=== PATIENT | female | born 1955 | race Caucasian/White ===

== ENCOUNTER 2018-12-24 12:47 | Observation (INO) | payer SELFPAY ==
[~2018-12-24] VITALS: Ht 154.9 cm; Wt 91.3 kg
[~2018-12-24 12:47] MED LIST: COZAAR100 MG PO; GLIPIZIDE5 MG PO; INSULIN PEN NE1 EAC2 SUBD; Insulin Detemir SQ; METFORMIN HCL500 MG PO; NORVASC10 MG PO; NOVOLOG100 UNITS1 SUBD; SIMVASTATIN40 MG PO
--- OUTSIDE RECORDS SUMMARY | 2018-12-24 12:50 | XMS REPORT ---
Author Author [facility] Address Unknown Phone Unavailable Care Team Providers Care Appellate Conferee Name Role Phone Beth MORA Unavailable Unavailable Mathew GARCIA Unavailable Unavailable Problems This patient has no known problems. Allergies, Adverse Reactions, Alerts This patient has no known allergies or adverse reactions. Medications This patient has no known medications. Encounters Start Date/Time End Date/Time Encounter Type Admission Type Attending Clinicians Care Facility Care Department Encounter ID 2017-10-03 00:00:00 2017-10-03 00:00:00 Outpatient [facility] [id number] 2017-08-24 09:20:57 2017-08-24 09:20:57 Outpatient [facility] [id number] 2017-08-24 08:18:40 2017-08-24 08:18:40 Outpatient [facility] [id number] 2017-07-31 00:00:00 2017-07-31 00:00:00 Outpatient [facility] [id number] 2017-07-17 13:15:38 2017-07-17 13:15:38 Outpatient [facility] [id number] 2017-06-27 00:00:00 2017-06-27 00:00:00 Outpatient [facility] [id number] 2017-06-08 08:37:26 2017-06-08 08:37:26 Outpatient [facility] [id number] 2017-05-29 00:00:00 2017-05-29 00:00:00 Outpatient [facility] [id number] 2017-05-29 00:00:00 2017-05-29 00:00:00 Outpatient [facility] [id number] 2017-05-28 13:55:57 2017-05-28 13:55:57 Outpatient [facility] [id number] Results Test Description Test Time Test Comments Text Results Atomic Results Result Comments CHEST XRAY LINE PLACEMENT [address] [address] Patient Name: MARCOS HAWKINS MR #: [id number] : 1955 Age/Sex: 61/F Req #: [id number] Adm Physician: NUSRAT MORA MD Ordered by: BANDAR GRIFFIN MD Report #: [id number] Location: [facility] Room/Bed: [facility] Procedure: [id number] DX/CHEST XRAY LINE PLACEMENT Exam Date: Exam Time: REPORT STATUS: Signed EXAMINATION: CHEST XRAY LINE PLACEMENT INDICATION: PICC line placement. COMPARISON: None FINDINGS: TUBES and LINES: Right upper extremity PICC line is visualized with tip overlying at the mid SVC. LUNGS: Lungs are well inflated. Lungs are clear. There is no evidence of pneumonia or pulmonary edema. PLEURA: No pleural effusion or pneumothorax. HEART AND MEDIASTINUM: The cardiomediastinal silhouette is unremarkable. BONES AND SOFT TISSUES: No acute osseous lesion. Soft tissues are unremarkable. UPPER ABDOMEN: No free air under the diaphragm. IMPRESSION: No acute thoracic abnormality. Signed by: Dr. Dominic Vallejo M.D. on 03/29/2017 11:27 PM Dictated By: DOMINIC ALEXANDER MD 26 Transcribed By: JM on 03/29/172326 COPY TO: BANDAR GRIFFIN MD MRI FOOT RIGHT [place] [address] Patient Name: MARCOS HAWKINS MR #: [id number] : 1955 Age/Sex: 61/F Req #: [id number] Adm Physician: NUSRAT MORA MD Ordered by: LOBO READ DPM Report #: [id number] Location: MED/[facility]3 Room/Bed: 288-1 Procedure: [id number] MRI/MRI FOOT RIGHT WO Exam Date: 03/29/17 Exam Time: 1339 REPORT STATUS: Signed TECHNIQUE: Magnetic resonance imaging of the RIGHT foot was performed WITHOUT injected contrast. HISTORY: Pain COMPARISON: None available. DISCUSSION: Small skin ulceration/puncture plantar aspect of the hallux. Bone edema within the distal phalanx without significant T1 signal change. Skin thickening with soft tissue edema. No abscess. Mild muscle atrophy. IMPRESSION: Probable early osteomyelitis of the distal phalanx of the hallux. Signed by: Dr. Catie Valle M.D. on 03/29/2017 2:31 PM Dictated By: CATIE VALLE MD 1431 Transcribed By: JM on 03/29/17 1431 COPY TO: LOBO READ DPM FOOT RIGHT COMPLETE [place] [address] Patient Name: MARCOS HAWKINS MR #: [id number] : 1955 Age/Sex: 61/F Req #: [id number] Adm Physician: Ordered by: NAHOMY XIAO MD Report #: [id number] Location: ER Room/Bed: Procedure: DX/FOOT RIGHT COMPLETE Exam Date: 03/28/17 Exam Time: 001 REPORT STATUS: Signed FOOT RIGHT COMPLETE LOWER LEG RIGHT HISTORY: Infection. COMPARISON: None FINDINGS: Bones: Diffuse demineralization. No displaced fracture. Osseous alignment is within normal limits. Joints: Scattered degenerative changes of the mid and forefoot. Soft tissues: Diffuse soft tissue swelling noted throughout the lower right leg and throughout the ankle and midfoot. Pretibial phleboliths present. IMPRESSION: Soft tissue swelling without evidence of underlying subcutaneous emphysema or bony erosion to suggest osteomyelitis. Signed by: Dr. Dominic Vallejo M.D. on 03/28/2017 12:29 AM Dictated By: DOMINIC ALEXANDER MD Transcribed By: JM on 03/28/1728 COPY TO: NAHOMY XIAO MD LOWER LEG RIGHT [place] [address] Patient Name: MARCOS HAWKINS MR #: [id number] : 1955 Age/Sex: 61/F Req #: [id number] Adm Physician: Ordered by: NAHOMY XIAO MD Report #: [id number] Location: ER Room/Bed: Procedure: DX/LOWER LEG RIGHT Exam Date: 03/28/17 Exam Time: 0015 REPORT STATUS: Signed FOOT RIGHT COMPLETE LOWER LEG RIGHT HISTORY: Infection. COMPARISON: None FINDINGS: Bones: Diffuse demineralization. No displaced fracture. Osseous alignment is within normal limits. Joints: Scattered degenerative changes of the mid and forefoot. Soft tissues: Diffuse soft tissue swelling noted throughout the lower right leg and throughout the ankle and midfoot. Pretibial phleboliths present. IMPRESSION: Soft tissue swelling without evidence of underlying subcutaneous emphysema or bony erosion to suggest osteomyelitis. Signed by: Dr. Dominic Vallejo M.D. on 03/28/2017 12:29 AM Dictated By: DOMINIC ALEXANDER MD Transcribed By: JM on 03/28/1728 COPY TO: NAHOMY XIAO MD TOES RIGHT MIN 2 VIEWS [place] [address] Patient Name: MARCOS HAWKINS MR #: [id number] : 1955 Age/Sex: 61/F Req #: [id number] Adm Physician: Ordered by: BRUNILDA GARCIA MD Report #: [id number] Location: ER Room/Bed: Procedure: [id number] DX/TOES RIGHT MIN 2 VIEWS Exam Date: 03/16/17 Exam Time: 1145 REPORT STATUS: Signed PROCEDURE: TOES RIGHT MIN 2 VIEWS TECHNIQUE: AP and lateral views right toes INDICATION: Right great toe puncture COMPARISON: None. FINDINGS: Right toes are intact and in anatomic alignment. Diffuse demineralization. No foreign bodies. CONCLUSION: No acute abnormality. Dictated by: Jayme Potts M.D. on 03/16/2017 at 12:30 Electronically approved by: Jayme Potts M.D. on 03/16/2017 at 12:30 Dictated By: JAYME POTTS MD 1230 Transcribed By: ELOISA on 03/16/17 1230 COPY TO: BRUNILDA GARCIA MD
[2018-12-24] MEDS ORDERED: ASPIRIN 81 MG CHEW TAB PO ONE (13:00)
[2018-12-24] MEDS ORDERED: HYDRALAZINE HCL 20 MG/ML VIAL IV STA (13:04)
--- NOTE | 2018-12-24 13:10 | NUR ---
pt states she ran out of bp meds 2 months ago because she could not afford them she does not take insulin everyday because it makes her sick she does not take metformin because her family told her it has bad side effects; pt states she did take her glipizide today
[2018-12-24] MEDS ORDERED: SODIUM CHLORIDE 0.9% 1000ML 1,000 ML IV STA (13:13)
[2018-12-24] MEDS ORDERED: INSULIN REGULAR, HUMAN 100 UNIT/1 ML 3ML VIAL IV ONE (13:15)
--- NOTE | 2018-12-24 13:54 | Diagnostic Imaging Report ---
Examination: Single AP view of the chest. COMPARISON: None. INDICATION: Dizziness DISCUSSION: Lines/tubes: None. Lungs: The lungs are well inflated and clear. There is no evidence of pneumonia or pulmonary edema. Pleura: There is no pleural effusion or pneumothorax. Heart and mediastinum: The heart and the mediastinum are unremarkable. Bones and soft tissues: No acute bony abnormalities. Degenerative changes in the thoracic spine. IMPRESSION: 1. No acute cardiopulmonary abnormalities. Signed by: Dr. Russell Ruiz M.D. on 12/24/2018 1:51 PM
[2018-12-24 14:37] LABS: BILIRUBIN,URINE NEGATIVE (NEGATIVE); CLARITY,URINE CLEAR (CLEAR); COLOR,URINE YELLOW (YELLOW); KETONES,URINE NEGATIVE (NEGATIVE); LEUKOCYTE ESTERASE ,URINE NEGATIVE (NEGATIVE); NITRITE,URINE NEGATIVE (NEGATIVE); PROTEIN,URINE DIPSTICK 2+ (NEGATIVE); URINE UROBILINOGEN 0.2 mg/dL (0.2 - 1)
--- NOTE | 2018-12-24 14:37 | Diagnostic Imaging Report ---
Examination: CT BRAIN WITHOUT CONTRAST History:Left leg weakness; headache; dizziness. Comparison studies:None Technique: Axial images were obtained from the skull base to the vertex. Coronal and sagittal images reconstructed from the axial data. Dose modulation, iterative reconstruction, and/or weight based adjustment of the mA/kV was utilized to reduce the radiation dose to as low as reasonably achievable. Intravenous contrast: None Findings: Scalp: No abnormalities. Bones: No fractures, blastic or lytic lesions. Brain sulci: Appropriate for age. Ventricles: Normal in size and configuration. No hydrocephalus. Extra-axial space: No abnormalities. Parenchyma: No masses, hemorrhage, or acute or chronic cortical based vascular insults.. Sellar/suprasellar region: CSF filled. Craniocervical junction: Patent foramen magnum. No Chiari one malformation. Incidental findings: Partially visualized right maxillary sinus is opacified. Impression: 1. No acute intracranial abnormalities. 2. Partially visualized right maxillary sinus is opacified. Signed by: Dr. Chary Araiza M.D. on 12/24/2018 2:34 PM
[2018-12-24 14:50] LABS: BASOPHILS # (AUTO) 0.1 (0.0-0.1); BASOPHILS % 0.6 % (0.0-1.0); EOSINOPHILS # (AUTO) 0.1 (0.0-0.4); EOSINOPHILS % 0.6 % (0.0-6.0); HEMATOCRIT 34.4 % (34.2-44.1); LYMPHOCYTES # (AUTO) 1.9 (1.0-3.2); LYMPHOCYTES % 22.5 % (18.0-39.1); MEAN CORPUSCULAR HEMOGLOBIN 30.7 pg (28-32); MEAN CORPUSCULAR HGB CONC 34.9 g/dL (31-35); MONOCYTES # (AUTO) 0.6 (0.2-0.8); MONOCYTES % 6.8 % (4.4-11.3); NEUTROPHILS # (AUTO) 5.7 (2.1-6.9); NEUTROPHILS % 68.9 % (38.7-80.0); PLATELET COUNT 291 x10e3/uL (140-360); RED BLOOD COUNT 3.91 x10e6/uL (3.6-5.1); RED CELL DISTRIBUTION WIDTH 12.2 % (11.7-14.4)
[2018-12-24] MEDS ORDERED: ALBUTEROL SULF 0.083% NEB SOLN 3 ML NEB NEB SCH (15:00)
[2018-12-24 15:07] LABS: BACTERIA,URINE FEW /HPF; EPITHELIAL CELLS,URINE MODERATE /LPF; RBC,URINE 0-5 /HPF (0-5)
[2018-12-24 15:10] LABS: ALBUMIN 3.3 g/dL (3.5-5.0); ALBUMIN/GLOBULIN RATIO 0.8 (0.8-2.0); ANION GAP 12.8 mmol/L (8-16); CALCIUM 9.6 mg/dL (8.4-10.2); CREATININE, SERUM 0.98 mg/dL (0.57-1.11); POTASSIUM 4.8 mmol/L (3.5-5.1)
[2018-12-24 15:30] LABS: CREATINE KINASE MB 2.8 ng/mL (0-5.0); THYROID STIMULATING HORMONE 2.949 uIU/mL (0.350-4.940)
[2018-12-24] MEDS ORDERED: DEXTROSE 50% SYRINGE 50 ML IV PRN (15:45)
[2018-12-24] MEDS ORDERED: ASPIRIN 325 MG TAB EC PO ONE (16:00)
[2018-12-24 16:34] LABS: INR 0.89; PROTHROMBIN TIME 12.5 seconds (11.9-14.5)
[2018-12-24 16:35] LABS: PARTIAL THROMBOPLASTIN TIME 29.7 seconds (23.8-35.5)
--- NOTE | 2018-12-24 17:35 | Diagnostic Imaging Report ---
History: Dizziness, ataxia Comparison studies: Head CT 12/24/2018. Technique: Sagittal and axial T2 FS, axial DWI, axial T2*GRE, axial T1 FLAIR and axial coronal T2 FLAIR. Intravenous contrast: None Findings: Scalp: Normal in signal. No masses. Bone marrow: Normal in signal intensity. Brain sulci: Appropriate for age. Ventricles: Normal in size. No hydrocephalus. Extra axial spaces: No mass, no fluid collection. Parenchyma: A 12 mm focus of increased DWI and T2 FLAIR signal in the posterior limb of the right internal capsule is compatible with infarct which may be acute to subacute. Intrinsic decreased ADC signal within the posterior limbs of internal capsules somewhat limit further evaluation for precise acuity. A few scattered T2 FLAIR hyperintense foci in the supratentorial white matter nonspecific most compatible with chronic microvascular ischemic changes. Small chronic lacunar infarct present the left thalamus and right middle frontal subcortical white matter. Suprasellar region: No abnormalities. Craniocervical junction: Patent foramen magnum. No Chiari malformation. Vessels: Normal flow-voids in the arteries and sinuses. Paranasal sinuses: Scattered nonspecific inflammatory mucosal thickening in the maxillary sinuses and bilateral ethmoid air cells. Right maxillary sinus is completely opacified Incidental findings: Lens replacements for previous cataract surgery. IMPRESSION: 1. Nonhemorrhagic lacunar infarct in the posterior limb of the right internal capsule which may be acute to subacute. 2. Small chronic left thalamic and right frontal lacunar infarcts. 3. Mild chronic microvascular ischemic changes. 4. Inflammatory changes in the paranasal sinuses. Signed by: Dr. Russell Clark M.D. on 12/24/2018 5:32 PM
[2018-12-24] MEDS: INSULIN LISPRO 100 UNIT/1 ML 3ML VIAL SQ SCH ×2 (17:39→20:03)
[2018-12-24] MEDS: SODIUM CHLORIDE 0.9% 1000ML 1,000 ML IV SCH (17:39)
--- NOTE | 2018-12-24 18:11 | NUR ---
Recvd patient from ER, Assisted her to bed, AAOX3, Not in any distress,resp even and unlabored, call light in reach
[2018-12-24 18:39] VITALS: BP 179/79
--- NOTE | 2018-12-24 19:00 | NUR ---
Received bedside shift report from day shift RN. Patient is A/Ox3, call light within reach, bed set low, wheels lock, and side rails up x2. Patient is not in distress.
[2018-12-24 19:28] VITALS: BP 188/70
[2018-12-24 19:30] VITALS: BP 188/70
[2018-12-24] MEDS: HYDRALAZINE HCL 20 MG/ML VIAL IV PRN (20:01)
--- NOTE | 2018-12-24 20:14 | NUR ---
Patient reported headache 4/10 and is requesting Tylenol. RN will contact MD for Rx.
[2018-12-24] MEDS: ACETAMINOPHEN 325 MG TAB PO PRN ×2 (20:26→21:06)
[2018-12-24] MEDS ORDERED: ACETAMINOPHEN 325 MG TAB ONE (20:27)
[2018-12-24] MEDS: ONDANSETRON HCL INJ 2MG/ML 2ML 2 MG/ML VIAL IV PRN (21:07)
--- NOTE | 2018-12-24 21:15 | NUR ---
Patient reported feeling nausea. RN retrieved Zofran IV and patient has already vomited into the basin. Zofran IV was administered and will monitor the patient's N/V throughout the shift.
--- NOTE | 2018-12-24 22:00 | Consultation ---
DATE OF CONSULTATION: 12/24/2018 Neurology Consult Note HISTORY OF PRESENT ILLNESS: Ms. Nava is a 63-year-old right-hand dominant woman with past medical history significant for hypertension, hyperlipidemia, diabetes mellitus type 2 complicated by peripheral neuropathy, and multiple prior strokes without residual deficits, admitted to [facility] under observation status on December 24, 2018 with a subacute stroke. Approximately three days prior to admission, the patient experienced a sudden onset of dizziness, which is further described as lightheadedness, weakness in the left leg more so than the left arm, and poor balance with impairment of gait. The patient does not report a visual field cut or other disturbance, dysarthria, aphasia, hemihypesthesia, or confusion associated with the above symptoms. Ms. Nava does report numbness and tingling affecting both feet secondary to diabetic peripheral neuropathy, but this is chronic. The patient's symptoms reportedly worsened on the day of admission. Therefore, Ms. Nava proceeded to the emergency center at [facility] for further evaluation of her symptoms. Upon arrival in the emergency center, the patient was afebrile with a blood pressure of 205/91 mmHg and a pulse of 82 beats per minute. Her neurological examination was documented as being nonfocal. While in the emergency center, a CT of the brain without contrast was performed. This study did not reveal evidence of recent large territorial ischemia or hemorrhage. Ms. Nava was admitted to [facility] under observation status for further evaluation and treatment of her symptoms. The patient does not take aspirin, Plavix, or other anti-platelet or anticoagulant medication at home. The patient has not taken her medications for hypertension, hyperlipidemia, or diabetes mellitus type 2 in the past several months due to expiration of her gold card. REVIEW OF SYSTEMS: Gradual decline in vision, weakness in the left arm and leg, numbness and tingling of the feet (chronic), impairment of balance and gait, dizziness which is further described as lightheadedness. PAST MEDICAL HISTORY: Hypertension, hyperlipidemia, diabetes mellitus type 2 complicated by peripheral neuropathy, multiple prior strokes without residual deficits. PAST SURGICAL HISTORY: Bilateral cataract removal, irrigation and debridement of a spider bite on the right thigh, and multiple wound care treatments. PAST HOSPITALIZATIONS: Surgeries/procedures as listed, foot infection, childbirth x4. FAMILY MEDICAL HISTORY: Multiple family members on both sides of the family have diabetes mellitus. The patient's paternal and maternal grandparents are . Their medical histories are unknown. The patient's father is from peptic ulcer disease. Her mother is from a stroke. Ms. Nava has one brother, who is alive, but has heart disease. The patient had four children. Her 1st child was stillborn. One daughter is due to cancer. Ms. Nava has one son and one daughter, who are alive. Other than tobacco use, there is no reported significant medical history in either the son or the daughter. SOCIAL HISTORY: Ms. Nava is a . She works as a automotive service cashier. The patient does not report current or prior tobacco, alcohol, or recreational drug use. HOME MEDICATIONS: Norvasc 10 mg by mouth daily, losartan 100 mg by mouth daily, Zocor 40 mg by mouth at bedtime daily, glipizide 10 mg by mouth twice daily, metformin 1000 mg by mouth twice daily, insulin detemir 40 units subcutaneously at bedtime daily, and NovoLog 12 units subcutaneously with meals. ALLERGIES: LEVOFLOXACIN. NO KNOWN FOOD ALLERGIES. NO KNOWN ALLERGIES TO LATEX. NO KNOWN ALLERGIES TO IODINE OR OTHER CONTRAST MATERIALS. PHYSICAL EXAMINATION: VITAL SIGNS: Height 61 inches, weight 187 pounds, BMI 35.3 kg/m2, blood pressure 179/79 mmHg, pulse 82 beats per minute, respiratory rate 20 breaths per minute, and oxygen saturation 99% on room air. GENERAL: The patient is awake and alert, does not appear distressed. Obese. HEENT: Normocephalic and atraumatic. Pupils are surgical. Moist mucous membranes. NECK: Supple. No appreciable thyromegaly. No appreciable carotid bruits. CARDIOVASCULAR: S1, S2, regular rate and rhythm. A moderate systolic ejection murmur is auscultated. No rubs or gallops. RESPIRATORY: Clear to auscultation bilaterally. No wheezes, rhonchi, or rales. EXTREMITIES: The skin is warm and dry. No clubbing, cyanosis, or edema. The posterior tibial and dorsalis pedis pulses are 2+ and symmetric. SKIN: No rashes or lesions. NEUROLOGIC: Memory/Attention: The patient is awake and alert, oriented to person, place, time, and situation. Cranial Nerves: Cranial nerve I - not tested. Cranial nerves II, III, IV, and - pupils are surgical. Extraocular movements intact. No nystagmus. Cranial nerve V - sensation to light touch and pinprick is intact in the bilateral V1 through V3 distributions. Strength in the temporalis and masseter muscles are within normal limits. Cranial nerve VII - the face is symmetric as are all facial movements. Strength is within normal limits. Cranial nerve VIII - hearing is intact to finger rub bilaterally. Cranial nerves IX, X - the soft palate elevates equally and symmetrically. Cranial nerve XI - normal strength of the bilateral sternocleidomastoid and trapezius muscles. Cranial nerve XII - the tongue protrudes midline and moves symmetrically from [id number]. Strength: Bulk is normal. Strength is 5/5 in the bilateral deltoids, biceps, triceps, wrist flexors and extensors, finger flexors and extensors, intrinsic hand muscles, hip flexors, knee flexors and extensors, ankle dorsiflexion and plantar flexion, and intrinsic foot muscles. Tone is normal. DTRs: Deep tendon reflexes are trace and symmetric at the triceps, biceps, and brachioradialis. Deep tendon reflexes are absent and symmetric at the patellas and Achilles. Plantar responses are flexor bilaterally. Sensation: Sensation is diminished to light touch and pinprick in a stocking distribution. Cerebellar: Vrfofc-mfjc-tzrtly and heel-rebollar movements are intact on the right, dysmetric on the left, outside the bounds of paresis. Gait: Deferred. Speech: Spontaneous speech is normal without appreciable dysarthria or aphasia. Repetition is intact. Involuntary Movements: None. Pronator Drift: None. LABORATORY DATA: A comprehensive metabolic panel significant for sodium of 132, estimated GFR of 57, glucose of 314, albumin of 3.3, and globulin of 4.3. Cardiac enzymes are negative x1. B-natriuretic peptide 84.5. TSH 2.949. Hemoglobin A1c 12.0. The CBC with differential and platelets is unremarkable. The coagulation profile is within normal limits. A urinalysis is significant for 2+ protein. A urine culture is pending. DIAGNOSTIC STUDIES: Electrocardiogram on 12/24/2018: Normal sinus rhythm at 73 beats per minute. Chest x-ray on 12/24/2018: No acute cardiopulmonary abnormalities. CT of the brain without contrast on 12/24/2018: On my review, there is no evidence of recent or remote large territorial ischemia, hemorrhage, mass, or mass effect. Cerebral volumes are appropriate for age. There are findings suspicious for chronic small-vessel ischemic disease. MRI of the brain without contrast on 12/24/2018: There is evidence of a subacute ischemic stroke in the posterior limb of the right internal capsule. There are chronic left thalamic and right frontal lacunar infarcts. Cerebral volumes are appropriate for age. There are scattered T2/FLAIR hyperintense foci in the supratentorial white matter compatible with mild chronic small-vessel ischemic disease. ASSESSMENT AND PLAN: Ms. Nava is a 63-year-old right-hand dominant woman with past medical history as detailed, not compliant with treatment, admitted to [facility] under observation status on December 24, 2018, with a subacute ischemic stroke in the posterior limb of the right internal capsule. The patient's neurological examination is significant for diminished sensation to light touch and pinprick in a stocking distribution, diminished deep tendon reflexes (legs greater than arms, and ataxia of the left arm and left leg). The patient's laboratory data and other diagnostic studies have been reviewed and are documented above. RECOMMENDATIONS: Are as follows: 1. A lipid panel has been ordered and is pending. 2. An echocardiogram has been ordered and is pending. Bilateral carotid artery ultrasound with Doppler has been ordered and completed, the results are pending. 3. Treatment with aspirin 325 mg by mouth daily for stroke prophylaxis will be prescribed. 4. Allow permissive hypertension for 24 to 48 hours, status post stroke. The patient's blood pressure may be gradually normalized beginning on December 25, 2018. 5. The patient's goal total cholesterol is less than 200 with LDL less than 70. Follow up the results of the lipid panel. In the interim, treatment with the patient's home medication of Zocor 40 mg by mouth at bedtime daily will be continued. 6. The patient's goal hemoglobin A1c is less than 7.0. Ms. Nava's hemoglobin A1c is 12.0. Continue with sliding scale insulin per protocol. Defer further treatment to the primary service. 7. Speech and Physical Therapy consultations have been ordered. 8. GI prophylaxis with Pepcid 20 mg by mouth with meals twice daily. DVT prophylaxis with Lovenox 40 mg subcutaneously daily. 9. Defer treatment of the remaining medical comorbidities to the primary and other services following the patient. Thank you for this consultation. I will continue to follow the patient, while she remains in the hospital. TIME SPENT: 50 minutes. Elizabeth Malone MD CP/KELL /[id number] MTDMathew
--- NOTE | 2018-12-24 22:32 | NUR ---
The patient's N/V has improved as well as her headache. Patient is ready to sleep for the night.
[2018-12-25] VITALS (7 sets, daily range): BP systolic 120–176; BP diastolic 60–79
[2018-12-25] MEDS: SODIUM CHLORIDE 0.9% 1000ML 1,000 ML IV SCH ×3 (04:47→21:20)
[2018-12-25 05:26] LABS: BASOPHILS % 0.5 % (0.0-1.0); EOSINOPHILS # (AUTO) 0.2 (0.0-0.4); HEMATOCRIT 31.2 % (34.2-44.1); HEMOGLOBIN 10.7 g/dL (12.0-16.0); LYMPHOCYTES # (AUTO) 2.1 (1.0-3.2); LYMPHOCYTES % 26.2 % (18.0-39.1); MEAN CORPUSCULAR HEMOGLOBIN 30.3 pg (28-32); MEAN CORPUSCULAR HGB CONC 34.3 g/dL (31-35); MEAN CORPUSCULAR VOLUME 88.4 fL (81-99); MONOCYTES # (AUTO) 0.6 (0.2-0.8); MONOCYTES % 7.7 % (4.4-11.3); NEUTROPHILS # (AUTO) 5.1 (2.1-6.9); NEUTROPHILS % 63.4 % (38.7-80.0); PLATELET COUNT 277 x10e3/uL (140-360); RED BLOOD COUNT 3.53 x10e6/uL (3.6-5.1); RED CELL DISTRIBUTION WIDTH 12.3 % (11.7-14.4)
[2018-12-25 05:54] LABS: CREATINE KINASE MB 1.8 ng/mL (0-5.0)
[2018-12-25 06:03] LABS: ALBUMIN 2.8 g/dL (3.5-5.0); ALBUMIN/GLOBULIN RATIO 0.8 (0.8-2.0); ANION GAP 10.3 mmol/L (8-16); CHOL/HDL RATIO 3.9 (3.0-3.6); CREATININE, SERUM 0.95 mg/dL (0.57-1.11); POTASSIUM 4.3 mmol/L (3.5-5.1)
[2018-12-25] MEDS: INSULIN LISPRO 100 UNIT/1 ML 3ML VIAL SQ SCH ×4 (07:30→21:00)
[2018-12-25] MEDS: FAMOTIDINE 20 MG TAB PO SCH ×2 (07:30→16:30)
--- NOTE | 2018-12-25 08:00 | NUR ---
Patient alert and responsive, in bed and tolerated all meds, no acute ischemic episodes, VSS and education provided on medications utilization to benefit downregulation of A1C which is at 12 at this time. CM provided list of cheaper alternative of medications to patient due to lack of insurance. Will monitor.
[2018-12-25] MEDS ORDERED: ASPIRIN 81 MG ENTERIC COATED PO SCH (09:00)
[2018-12-25] MEDS: LISINOPRIL 10 MG TAB PO SCH (09:05)
[2018-12-25] MEDS: ASPIRIN 81 MG ENTERIC COATED PO SCH (09:05)
--- NOTE | 2018-12-25 09:15 | NUR ---
GAVE PACKET OF INFORMATION WITH [facility] [employer] FOR ASSISTANCE WITH LOW TO NO INCOME TO PATIENT. RESOURCES THAT PATIENT MAY BE ABLE TO FOLLOW UP UPON DISCHARGE. PT EDUCATED ON EACH RESOURCE AND UNDERSTANDING HOW TO FOLLOW UP TO SEE IF QUALIFIED FOR EACH RESOURCE.
--- NOTE | 2018-12-25 10:49 | NUR ---
Speech evaluation completed for patient and no concerns on speech and swallowing at this time
[2018-12-25 14:14] LABS: CREATINE KINASE MB 1.8 ng/mL (0-5.0)
[2018-12-25] MEDS: ENOXAPARIN SOD INJ 40 MG/0.4 ML SYR SC SCH (17:29)
--- NOTE | 2018-12-25 18:10 | History and Physical ---
HISTORY OF PRESENT ILLNESS: Marylou Nava is a 63-year-old female with past medical history positive for hypertension and diabetes. On Sunday, which is 5 days ago, she started complaining of left leg weakness, then she got left upper extremity weakness, which did not get any better, so she finally came to the emergency room five days later to look for medical attention. REVIEW OF SYSTEMS: CARDIOVASCULAR: No chest pain or palpitation. RESPIRATORY: No shortness of breath. No cough. GASTROINTESTINAL: No nausea. One episode of vomiting. No diarrhea. No abdominal pain. GENITOURINARY: No frequency. No dysuria. ALLERGIES: SHE IS ALLERGIC TO LEVAQUIN. SOCIAL HISTORY: She does not smoke. She does not drink. PAST MEDICAL HISTORY: Hypertension and diabetes mellitus, type 2. PHYSICAL EXAMINATION: VITAL SIGNS: Blood pressure 176/79, temperature 97.2, heart rate is 74 per minute, respiratory rate 16 per minute, and oxygen saturation 96%. HEART: Regular rhythm. No murmur or added sound. LUNGS: Clear bilaterally. ABDOMEN: Soft, nontender. No distention. EXTREMITIES: Show no evidence of cyanosis, edema, or trauma. NEUROLOGIC: Alert and oriented x3. Cranial nerves 2 through 12 within normal limit. Motor strength is 5/5 in upper and lower extremities. No evidence of any focal deficits. LABORATORY DATA: On the BMP; sodium 134, potassium 4.3, chloride 103, CO2 25, BUN 17, creatinine 0.96, glucose 174. On CBC; white blood count 8.04, hemoglobin 10.7, hematocrit 31.2, and platelet count 277,000. PT 12.5, INR was 0.89, PTT 29.7. AST 21, ALT 17, total bilirubin 0.5, alkaline phosphatase 73. Echocardiogram showed ejection fraction of 65%. No pericardial effusion. No severe valvular abnormality. EKG showed normal sinus rhythm. No evidence of any ST-segment elevation or depression. MRI of the head was done, which showed evidence of CVA. More specifically, the MRI of the head showed nonhemorrhagic lacunar infarct in the posterior limb of the right internal capsule, which may be acute or subacute. Small chronic left thalamic and right frontal lacunar infarct. Mild chronic microvascular ischemic changes. Inflammatory changes in the paranasal sinuses. Chest x-ray, no acute cardiopulmonary abnormality. FINAL IMPRESSION: 1. Right lacunar cerebrovascular accident with ataxia. She had mild hemiparesis on admission . 2. Hypertension. 3. Diabetes mellitus, type 2. PLAN OF TREATMENT: Continue with hydralazine 10 mg IV q.4 hours as needed for hypertension. Monitor blood sugar before meals and at bedtime. Diabetic diet. Lovenox 40 mg subcutaneous daily, lisinopril 10 mg daily, Pepcid 20 mg twice a day, aspirin 325 mg daily, Zofran 4 mg IV q.4 hours as needed, Tylenol 650 mg q.4 hours as needed for pain or fever. We are going to start Lipitor [address] Malone has been consulted from the Neurology point of view and carotid Doppler has been ordered. Continue physical and occupational therapy. MD KYLAH Rodriguez/KELL /[id number]
--- NOTE | 2018-12-25 19:02 | NUR ---
Rounds by Dr. Malone and will review medication profile and write prescriptions for patient but wants SBP to be in he 140's prior to discharge. Patient will also need prescriptions for insulin. Will monitor
[2018-12-25] MEDS ORDERED: ATORVASTATIN 20 MG TAB PO SCH (21:00)
[2018-12-25] MEDS ORDERED: ATORVASTATIN 40 MG TAB PO SCH (21:00)
[2018-12-26 00:05] VITALS: BP 133/63
[2018-12-26 04:00] VITALS: BP 181/81
[2018-12-26] MEDS: HYDRALAZINE HCL 20 MG/ML VIAL IV PRN (04:10)
[2018-12-26] MEDS: ONDANSETRON HCL INJ 2MG/ML 2ML 2 MG/ML VIAL IV PRN (05:35)
[2018-12-26] MEDS ORDERED: DOCUSATE SODIUM 100 MG CAP PO PRN (06:00)
[2018-12-26] MEDS ORDERED: LACTULOSE SYRUP 20 GM/30 ML UDC PO PRN (06:00)
--- NOTE | 2018-12-26 06:07 | NUR ---
Patient c/o constipation and nausea. Given prn Zofran. Called Dr. Doe and received orders.
[2018-12-26] MEDS: SODIUM CHLORIDE 0.9% 1000ML 1,000 ML IV SCH (06:08)
--- NOTE | 2018-12-26 07:06 | NUR ---
Walking rounds done and report received. Patient is awake, alert and able to make needs known in NAD noted. POC discussed. Patient was instructed to call for assistance and verbalized understanding. Tele #[phone], [email or web address]. Call hankins within reach.
[2018-12-26] MEDS: INSULIN LISPRO 100 UNIT/1 ML 3ML VIAL SQ SCH ×3 (07:30→16:30)
[2018-12-26 08:20] VITALS: BP 174/84
[2018-12-26] MEDS: FAMOTIDINE 20 MG TAB PO SCH ×2 (08:32→17:19)
[2018-12-26] MEDS: ASPIRIN 81 MG ENTERIC COATED PO SCH (08:32)
[2018-12-26] MEDS: LISINOPRIL 10 MG TAB PO SCH (08:32)
[2018-12-26 12:00] VITALS: BP 174/84
[2018-12-26 12:22] VITALS: BP 140/74
[2018-12-26] MEDS ORDERED: ONDANSETRON HCL 4 MG ORAL DISINTEGRATING TAB PO PRN (13:15)
[2018-12-26] MEDS ORDERED: SOD PHOSPHATE/SOD BIPHOSPHATE ENEMA 132 ML BTL PR ONE (15:00)
[2018-12-26] MEDS: ENOXAPARIN SOD INJ 40 MG/0.4 ML SYR SC SCH (17:00)
[2018-12-26 17:02] VITALS: BP 169/77
[2018-12-26] MEDS ORDERED: ASPIR 8181 MG PO (17:08)
--- NOTE | 2018-12-26 17:55 | NUR ---
Patient discharged home with written instructions and prescriptions. She verbalized understanding. IV dc'd, cath intact and small dressing applied.
--- NOTE | 2018-12-27 02:24 | Discharge Summary ---
HISTORY OF PRESENT ILLNESS: The patient is a 63-year-old female with past medical history positive for diabetes and hypertension, came here because of dizziness and difficulty walking. She was found to have ischemic CVA on the posterior limb of the right internal capsule, which may be acute or subacute. She also has small chronic left thalamic and right frontal lacunar infarct, mild chronic microvascular ischemic changes, inflammatory changes in paranasal sinuses. So, the patient was started on aspirin. She was started on simvastatin. The patient apparently was taking glipizide at home, but she was not taking it here. The patient was seen by Dr. Malone, Neurology. He recommended for her to be discharged on aspirin, simvastatin, and continue glipizide. The patient has no need for physical, occupational, or speech therapy. She is doing well. Carotid Doppler apparently showed no evidence of any carotid stenosis. She is going home and she has to follow with [facility] with her primary care physician. PHYSICAL EXAMINATION: HEART: Showed regular rhythm. Normal S1 and S2 sound. LUNGS: Clear bilaterally. ABDOMEN: Soft. FINAL IMPRESSION: 1. Episode of right-sided cerebrovascular accident. 2. Uncontrolled diabetes mellitus type 2. 3. Hypertension. DISCHARGE MEDICATIONS: She is going to continue lisinopril 10 mg daily. Continue aspirin 81 mg daily, Zocor 40 mg daily, Colace 100 mg daily, glipizide 10 mg twice a day which she was taking at home. FOLLOWUP: I told the patient to follow up with [facility] clinic in a week. The patient has been discharged today by Dr. Malone, Neurology. DIET: An 1800 calorie diabetic and cardiac low-cholesterol diet. MD KYLAH Rodriguez/KELL /[id number]
[2018-12-27] MEDS ORDERED: GLIMEPIRIDE 2 MG TAB PO SCH (08:00)
== END 2018-12-26 18:04 | disposition home or self-care (01) ==
LOC: ER 12:47 → ERHOLD 15:49 → IMCU 18:05
PROVIDERS: ADMIT Internal Medicine; ATTEND Internal Medicine
DX: I63.9 Cerebral infarction, unspecified (principal); E11.65 Type 2 diabetes mellitus with hyperglycemia; I10 Essential (primary) hypertension; E11.42 Type 2 diabetes mellitus with diabetic polyneuropathy; Z79.4 Long term (current) use of insulin; Z86.73 Personal history of transient ischemic attack (TIA), and cerebral infarction without residual deficits; E78.5 Hyperlipidemia, unspecified; R26.0 Ataxic gait
CPT/HCPCS: 36415 ×3; 70450; 70551; 71045; 80053 ×2; 80061; 81001; 82550 ×2; 82553 ×2; 82948 ×3; 83036; 83880; 84443; 84484 ×2; 85025 ×2; 85610; 85730; 87086; 92507; 92523; 93005; 93306; 93880; 96372; 97161; 99284; G0378 ×3; J0360 ×2; J1650; J1817; J2405 ×2; J7030 ×3

== ENCOUNTER 2020-06-16 14:25 | Emergency (ER) | payer MEDICARE, OTHER ==
[~2020-06-16] VITALS: Ht 152.4 cm; Wt 91.2 kg
[~2020-06-16 14:25] MED LIST changes: +ASPIR 8181 MG PO
[2020-06-16] MEDS ORDERED: ONDANSETRON HCL INJ 2MG/ML 2ML 2 MG/ML VIAL IV STA (14:45)
[2020-06-16 15:09] LABS: BASOPHILS % 0.5 % (0.0-1.0); EOSINOPHILS % 0.2 % (0.0-6.0); HEMOGLOBIN 11.2 g/dL (12.0-16.0); LYMPHOCYTES # (AUTO) 0.9 (1.0-3.2); LYMPHOCYTES % 11.2 % (18.0-39.1); MEAN CORPUSCULAR HEMOGLOBIN 29.1 pg (28-32); MEAN CORPUSCULAR HGB CONC 32.9 g/dL (31-35); MEAN CORPUSCULAR VOLUME 88.3 fL (81-99); MONOCYTES # (AUTO) 0.3 (0.2-0.8); MONOCYTES % 3.5 % (4.4-11.3); NEUTROPHILS % 84.4 % (38.7-80.0); PLATELET COUNT 326 x10e3/uL (140-360); RED BLOOD COUNT 3.85 x10e6/uL (3.6-5.1); RED CELL DISTRIBUTION WIDTH 12.5 % (11.7-14.4)
[2020-06-16 15:21] LABS: INR 0.99; PROTHROMBIN TIME 13.6 seconds (11.9-14.5)
[2020-06-16 15:28] LABS: ALBUMIN 3.1 g/dL (3.5-5.0); ALBUMIN/GLOBULIN RATIO 0.7 (0.8-2.0); ANION GAP 15.6 mmol/L (8-16); CALCIUM 9.3 mg/dL (8.4-10.2); CREATININE, SERUM 1.73 mg/dL (0.57-1.11); POTASSIUM 4.6 mmol/L (3.5-5.1)
[2020-06-16] MEDS ORDERED: HYDRALAZINE HCL 20 MG/ML VIAL IV ONE ×2 (16:26→17:30)
[2020-06-16 16:34] LABS: BILIRUBIN,URINE NEGATIVE (NEGATIVE); CLARITY,URINE SL CLOUDY (CLEAR); COLOR,URINE YELLOW (YELLOW); KETONES,URINE TRACE (NEGATIVE); LEUKOCYTE ESTERASE ,URINE NEGATIVE (NEGATIVE); NITRITE,URINE NEGATIVE (NEGATIVE); PROTEIN,URINE DIPSTICK >=300 (NEGATIVE); URINE UROBILINOGEN 0.2 mg/dL (0.2 - 1)
[2020-06-16 16:49] LABS: BACTERIA,URINE FEW /HPF; EPITHELIAL CELLS,URINE MODERATE /LPF
[2020-06-16] MEDS ORDERED: HYDRALAZINE HCL 20 MG/ML VIAL IV STA (17:12)
[2020-06-16] MEDS ORDERED: HYDROCHLOROTHIA25 MG PO (17:31)
[2020-06-16 17:59] VITALS: BP 181/93
[2020-06-16] MEDS ORDERED: PROMETHAZINE HCL (IM) 25 MG/ML VIAL IM ONE ×2 (18:30→18:31)
== END 2020-06-16 18:01 | disposition home or self-care (01) ==
LOC: ER 14:43
DX: I10 Essential (primary) hypertension (principal); R42 Dizziness and giddiness; R11.0 Nausea; E11.65 Type 2 diabetes mellitus with hyperglycemia; E78.5 Hyperlipidemia, unspecified
CPT/HCPCS: 36415; 70450; 80053; 81001; 83880; 84484; 85025; 85610; 93005; 99284; J0360; J2405; J2550

== ENCOUNTER 2020-11-13 02:26 | Inpatient (IN) | payer MEDICARE ==
[~2020-11-13] VITALS: Ht 154.9 cm; Wt 91.2 kg
[~2020-11-13 02:26] MED LIST changes: +HYDROCHLOROTHIA25 MG PO
[2020-11-13] MEDS ORDERED: EPINEPHRINE 2.25% INH NEBU SOL 0.5 ML VIAL INH STA (02:31)
[2020-11-13] MEDS ORDERED: LIDOCAINE VISC 2% SOLN 15 ML UDC PO ONE (02:45)
[2020-11-13] MEDS ORDERED: ASPIRIN 81 MG CHEW TAB PO ONE ×2 (02:45→04:00)
[2020-11-13] MEDS ORDERED: BELLADONNA ALK/PHENOBARBITAL 5 ML UDC PO ONE (02:45)
[2020-11-13] MEDS ORDERED: DONNATAL/LIDOCAINE/MAALOX 30 ML SUSP PO ONE (02:45)
[2020-11-13 02:51] LABS: BASOPHILS # (AUTO) 0.1 (0.0-0.1); BASOPHILS % 0.5 % (0.0-1.0); EOSINOPHILS # (AUTO) 0.3 (0.0-0.4); EOSINOPHILS % 2.3 % (0.0-6.0); HEMATOCRIT 24.8 % (34.2-44.1); HEMOGLOBIN 8.2 g/dL (12.0-16.0); LYMPHOCYTES # (AUTO) 1.4 (1.0-3.2); LYMPHOCYTES % 11.6 % (18.0-39.1); MEAN CORPUSCULAR HGB CONC 33.1 g/dL (31-35); MEAN CORPUSCULAR VOLUME 90.8 fL (81-99); MONOCYTES % 7.9 % (4.4-11.3); NEUTROPHILS # (AUTO) 9.3 (2.1-6.9); NEUTROPHILS % 77.2 % (38.7-80.0); PLATELET COUNT 254 x10e3/uL (140-360); RED BLOOD COUNT 2.73 x10e6/uL (3.6-5.1); RED CELL DISTRIBUTION WIDTH 12.7 % (11.7-14.4)
[2020-11-13] MEDS ORDERED: MAGNESIUM/ALUMINUM/SIMETHICONE 30 ML UDC PO ONE (03:00)
[2020-11-13 03:12] LABS: ALBUMIN/GLOBULIN RATIO 0.7 (0.8-2.0); CALCIUM 8.8 mg/dL (8.4-10.2); CREATININE, SERUM 2.32 mg/dL (0.57-1.11)
[2020-11-13 03:18] LABS: CREATINE KINASE MB 1.6 ng/mL (0-5.0)
[2020-11-13] MEDS ORDERED: HYDRALAZINE HCL 20 MG/ML VIAL IV STA (03:27)
[2020-11-13] MEDS ORDERED: ALBUTEROL/IPRATROPIUM 3 ML NEB NEB STA (03:38)
[2020-11-13] MEDS ORDERED: HYDRALAZINE HCL 20 MG/ML VIAL ONE (03:39)
[2020-11-13] MEDS ORDERED: FUROSEMIDE INJ 10 MG/ML 4 ML VIAL IV ONE (03:45)
[2020-11-13 08:23] VITALS: BP 115/83
[2020-11-13 08:26] VITALS: BP 115/83
[2020-11-13 08:47] VITALS: BP 115/83
[2020-11-13 11:27] VITALS: BP 139/81
[2020-11-13 12:07] LABS: CREATINE KINASE MB 1.8 ng/mL (0-5.0)
[2020-11-13] MEDS ORDERED: DEXTROSE 50% SYRINGE 50 ML IV PRN (14:00)
[2020-11-13] MEDS ORDERED: DIPHENHYDRAMINE HCL INJ 50 MG/ML VIAL IV PRN (14:00)
[2020-11-13] MEDS ORDERED: GUAIFENESIN 200 MG/10 ML UDC PO PRN (15:15)
[2020-11-13] MEDS ORDERED: ACETAMINOPHEN 325 MG TAB PO PRN (15:15)
[2020-11-13] MEDS: CEFEPIME HCL 1GM 1 GM in SODIUM CHLORIDE 0.9% 50ML 50 ML IV SCH (16:11)
[2020-11-13] MEDS: INSULIN LISPRO 100 UNIT/1 ML 3ML VIAL SQ SCH ×2 (16:44→20:37)
[2020-11-13 20:00] VITALS: BP 161/63
[2020-11-13] MEDS: SIMVASTATIN 40 MG TAB PO SCH (20:45)
[2020-11-13] MEDS: INSULIN GLARGINE 100 UNITS/ML VIAL SQ SCH (20:48)
[2020-11-13 21:17] VITALS: BP 161/63
[2020-11-13] MEDS: FUROSEMIDE INJ 10 MG/ML 4 ML VIAL IV SCH (22:15)
[2020-11-13 23:07] LABS: CREATINE KINASE MB 1.1 ng/mL (0-5.0)
[2020-11-14] VITALS (7 sets, daily range): BP systolic 109–153; BP diastolic 53–95
[2020-11-14 05:50] LABS: BASOPHILS # (AUTO) 0.1 (0.0-0.1); BASOPHILS % 0.7 % (0.0-1.0); EOSINOPHILS # (AUTO) 0.5 (0.0-0.4); EOSINOPHILS % 6.1 % (0.0-6.0); LYMPHOCYTES # (AUTO) 1.6 (1.0-3.2); LYMPHOCYTES % 20.3 % (18.0-39.1); MEAN CORPUSCULAR HEMOGLOBIN 29.8 pg (28-32); MEAN CORPUSCULAR HGB CONC 32.5 g/dL (31-35); MEAN CORPUSCULAR VOLUME 91.7 fL (81-99); MONOCYTES # (AUTO) 0.8 (0.2-0.8); MONOCYTES % 9.6 % (4.4-11.3); NEUTROPHILS % 62.8 % (38.7-80.0); PLATELET COUNT 179 x10e3/uL (140-360); RED BLOOD COUNT 2.28 x10e6/uL (3.6-5.1); RED CELL DISTRIBUTION WIDTH 12.6 % (11.7-14.4)
[2020-11-14 06:27] LABS: ALBUMIN 2.4 g/dL (3.5-5.0); ALBUMIN/GLOBULIN RATIO 0.6 (0.8-2.0); ANION GAP 15.8 mmol/L (8-16); CALCIUM 8.1 mg/dL (8.4-10.2); CREATININE, SERUM 2.83 mg/dL (0.57-1.11); POTASSIUM 4.8 mmol/L (3.5-5.1)
[2020-11-14] MEDS: FUROSEMIDE INJ 10 MG/ML 4 ML VIAL IV SCH ×2 (06:44→21:43)
[2020-11-14 07:01] LABS: HEMATOCRIT 20.9 % (34.2-44.1); HEMOGLOBIN 6.8 g/dL (12.0-16.0)
[2020-11-14] MEDS ORDERED: SODIUM CHLORIDE 0.9% 250ML 250 ML IV ONE (07:15)
[2020-11-14] MEDS: INSULIN LISPRO 100 UNIT/1 ML 3ML VIAL SQ SCH ×4 (07:30→20:25)
[2020-11-14 08:24] LABS: CREATINE KINASE MB 0.8 ng/mL (0-5.0); MAGNESIUM 2.3 MG/DL (1.3-2.1)
[2020-11-14 08:49] LABS: FERRITIN 94.8 ng/mL (4.63-204.00)
[2020-11-14] MEDS: ASPIRIN 81 MG CHEW TAB PO SCH (09:23)
[2020-11-14] MEDS: AMLODIPINE BESYLATE 10 MG TAB PO SCH (09:24)
[2020-11-14] MEDS ORDERED: PIPERONYL BUTOXIDE/PYRETHRINS 118 ML SHAMPOO TP SCH (10:00)
[2020-11-14] MEDS ORDERED: PANTOPRAZOLE SOD 40 MG TABEC PO ONE (10:15)
[2020-11-14] MEDS ORDERED: SODIUM CHLORIDE 0.9% 250ML 250 ML ONE ×2 (10:59→14:35)
[2020-11-14] MEDS: HYDRALAZINE HCL 20 MG/ML VIAL IV PRN (11:20)
[2020-11-14] MEDS: CEFEPIME HCL 1GM 1 GM in SODIUM CHLORIDE 0.9% 50ML 50 ML IV SCH (14:50)
[2020-11-14] MEDS: INSULIN GLARGINE 100 UNITS/ML VIAL SQ SCH (20:26)
[2020-11-14] MEDS: SIMVASTATIN 40 MG TAB PO SCH (21:43)
[2020-11-15] VITALS (9 sets, daily range): BP systolic 124–167; BP diastolic 66–69
[2020-11-15 05:22] LABS: HEMATOCRIT 23.6 % (34.2-44.1); HEMOGLOBIN 7.8 g/dL (12.0-16.0)
[2020-11-15 05:55] LABS: ANION GAP 13.9 mmol/L (8-16); CALCIUM 8.1 mg/dL (8.4-10.2); CREATININE, SERUM 2.93 mg/dL (0.57-1.11); POTASSIUM 4.9 mmol/L (3.5-5.1)
[2020-11-15 06:16] LABS: FERRITIN 186.63 ng/mL (4.63-204.00)
[2020-11-15] MEDS: INSULIN LISPRO 100 UNIT/1 ML 3ML VIAL SQ SCH ×4 (07:30→21:50)
[2020-11-15] MEDS: FUROSEMIDE INJ 10 MG/ML 4 ML VIAL IV SCH ×2 (08:23→21:49)
[2020-11-15] MEDS: ASPIRIN 81 MG CHEW TAB PO SCH (08:23)
[2020-11-15] MEDS: AMLODIPINE BESYLATE 10 MG TAB PO SCH (08:24)
[2020-11-15] MEDS ORDERED: SODIUM CHLORIDE 0.9% 1000ML 1,000 ML IV ONE (10:45)
[2020-11-15 12:03] LABS: CLARITY,URINE CLEAR (CLEAR); COLOR,URINE YELLOW (YELLOW); KETONES,URINE NEGATIVE (NEGATIVE); LEUKOCYTE ESTERASE ,URINE NEGATIVE (NEGATIVE); NITRITE,URINE NEGATIVE (NEGATIVE); PROTEIN,URINE DIPSTICK 2+ (NEGATIVE); URINE UROBILINOGEN 0.2 mg/dL (0.2 - 1)
[2020-11-15 12:15] LABS: BACTERIA,URINE MODERATE /HPF; EPITHELIAL CELLS,URINE MODERATE /LPF; MUCUS,URINE MODERATE (RARE)
[2020-11-15 12:28] LABS: CREATININE,URINE RANDOM 40.55 mg/dL (47-110)
[2020-11-15 13:25] LABS: TOTAL PROTEIN, URINE 184.1 mg/dL (1-14)
[2020-11-15] MEDS: CEFEPIME HCL 1GM 1 GM in SODIUM CHLORIDE 0.9% 50ML 50 ML IV SCH (15:34)
[2020-11-15] MEDS: SIMVASTATIN 40 MG TAB PO SCH (21:49)
[2020-11-15] MEDS: INSULIN GLARGINE 100 UNITS/ML VIAL SQ SCH (21:50)
[2020-11-16] VITALS (9 sets, daily range): BP systolic 133–172; BP diastolic 64–83
[2020-11-16 05:49] LABS: ALBUMIN 2.4 g/dL (3.5-5.0); ALBUMIN/GLOBULIN RATIO 0.6 (0.8-2.0); ANION GAP 13.5 mmol/L (8-16); CREATININE, SERUM 2.7 mg/dL (0.57-1.11); POTASSIUM 4.5 mmol/L (3.5-5.1)
[2020-11-16] MEDS: INSULIN LISPRO 100 UNIT/1 ML 3ML VIAL SQ SCH ×4 (07:30→20:32)
[2020-11-16] MEDS: ASPIRIN 81 MG CHEW TAB PO SCH (08:45)
[2020-11-16] MEDS: FUROSEMIDE INJ 10 MG/ML 4 ML VIAL IV SCH ×2 (08:45→20:35)
[2020-11-16] MEDS: AMLODIPINE BESYLATE 10 MG TAB PO SCH (08:45)
[2020-11-16] MEDS: CEFEPIME HCL 1GM 1 GM in SODIUM CHLORIDE 0.9% 50ML 50 ML IV SCH (15:30)
[2020-11-16] MEDS: INSULIN GLARGINE 100 UNITS/ML VIAL SQ SCH (20:34)
[2020-11-16] MEDS: SIMVASTATIN 40 MG TAB PO SCH (20:35)
[2020-11-17] VITALS (8 sets, daily range): BP systolic 138–187; BP diastolic 67–83
[2020-11-17] MEDS: HYDRALAZINE HCL 20 MG/ML VIAL IV PRN ×2 (04:33→11:48)
[2020-11-17] MEDS: INSULIN LISPRO 100 UNIT/1 ML 3ML VIAL SQ SCH ×4 (07:30→20:31)
[2020-11-17] MEDS: ASPIRIN 81 MG CHEW TAB PO SCH (09:22)
[2020-11-17] MEDS: AMLODIPINE BESYLATE 10 MG TAB PO SCH (09:22)
[2020-11-17] MEDS: FUROSEMIDE INJ 10 MG/ML 4 ML VIAL IV SCH ×2 (09:22→20:31)
[2020-11-17] MEDS ORDERED: EPOETIN ALFA-EPBX 10,000 UNIT/ML VIAL SC NR (14:30)
[2020-11-17 15:57] LABS: % IRON SATURATION 9 % (15-50); IRON 24 ug/dL (50-170); TOTAL IRON BINDING CAPACITY 267 ug/dL (261-478); TRANSFERRIN 191 mg/dL (180-382)
[2020-11-17] MEDS: CEFEPIME HCL 1GM 1 GM in SODIUM CHLORIDE 0.9% 50ML 50 ML IV SCH (16:15)
[2020-11-17] MEDS ORDERED: ONDANSETRON HCL INJ 2MG/ML 2ML 2 MG/ML VIAL IV PRN (16:30)
[2020-11-17] MEDS: SIMVASTATIN 40 MG TAB PO SCH (20:31)
[2020-11-17] MEDS ORDERED: INSULIN GLARGINE 100 UNITS/ML VIAL SQ SCH (21:00)
[2020-11-18] VITALS: BP 135/63
[2020-11-18 04:00] VITALS: BP_SYST 149; BP_SYST 155; BP_DIAS 71; BP_DIAS 72
[2020-11-18 05:29] LABS: ALBUMIN 2.4 g/dL (3.5-5.0); ALBUMIN/GLOBULIN RATIO 0.6 (0.8-2.0); ANION GAP 12.9 mmol/L (8-16); CALCIUM 8.5 mg/dL (8.4-10.2); CREATININE, SERUM 2.35 mg/dL (0.57-1.11); POTASSIUM 4.9 mmol/L (3.5-5.1)
[2020-11-18] MEDS: INSULIN LISPRO 100 UNIT/1 ML 3ML VIAL SQ SCH ×3 (07:30→16:30)
[2020-11-18 08:53] VITALS: BP 143/70
[2020-11-18 08:59] VITALS: BP 143/70
[2020-11-18] MEDS ORDERED: LOSARTAN POTASSIUM 100 MG TAB PO SCH (09:00)
[2020-11-18] MEDS ORDERED: IRON SUCROSE 100 MG in SODIUM CHLORIDE 0.9% 100 ML 100 ML IV SCH ×2 (10:00→11:30)
[2020-11-18] MEDS: ASPIRIN 81 MG CHEW TAB PO SCH (10:34)
[2020-11-18] MEDS: FUROSEMIDE INJ 10 MG/ML 4 ML VIAL IV SCH (10:34)
[2020-11-18] MEDS: AMLODIPINE BESYLATE 10 MG TAB PO SCH (10:35)
[2020-11-18] MEDS ORDERED: SODIUM CHLORIDE 0.9% 50ML 50 ML ONE (12:40)
[2020-11-18] MEDS: HYDRALAZINE HCL 20 MG/ML VIAL IV PRN (12:41)
[2020-11-18 13:16] VITALS: BP 161/70
[2020-11-18] MEDS: CEFEPIME HCL 1GM 1 GM in SODIUM CHLORIDE 0.9% 50ML 50 ML IV SCH (15:49)
[2020-11-18 16:58] VITALS: BP 133/67
[2020-11-18] MEDS ORDERED: Insulin Lispro SQ (18:09)
[2020-11-18] MEDS ORDERED: CEFEPIME 11 GM/50 ML IV (18:09)
[2020-11-18] MEDS ORDERED: MELATONIN3 MG PO (18:09)
[2020-11-18] MEDS ORDERED: FERROUS SULFAT325 MG PO (18:09)
[2020-11-18] MEDS ORDERED: FUROSEMIDE40 MG PO (18:09)
[2020-11-18] MEDS ORDERED: COLACE100 MG PO (18:09)
[2020-11-18] MEDS ORDERED: Insulin Glargine SQ (18:11)
[2020-11-18] MEDS ORDERED: MELATONIN 3 MG TAB PO SCH (21:00)
[2020-11-19] MEDS ORDERED: FUROSEMIDE 40 MG TAB PO SCH (09:00)
== END 2020-11-18 20:11 | DRG 291 ==
LOC: ER 02:29 → ERHOLD 03:56 → IMCU 07:40 → MED/SURG2 11-14 12:01
PROVIDERS: ADMIT Internal Medicine; ATTEND Internal Medicine
DX: I13.0 Hypertensive heart and chronic kidney disease with heart failure and stage 1 through stage 4 chronic kidney disease, or unspecified chronic kidney disease (principal); I50.33 Acute on chronic diastolic (congestive) heart failure; J18.9 Pneumonia, unspecified organism; N17.9 Acute kidney failure, unspecified; N39.0 Urinary tract infection, site not specified; N18.32 Chronic kidney disease, stage 3b; E11.21 Type 2 diabetes mellitus with diabetic nephropathy; T14.8XXA Other injury of unspecified body region, initial encounter; I16.0 Hypertensive urgency; E78.5 Hyperlipidemia, unspecified; Z88.1 Allergy status to other antibiotic agents; E66.01 Morbid (severe) obesity due to excess calories; Z68.38 Body mass index [BMI] 38.0-38.9, adult; Z20.822 Contact with and (suspected) exposure to COVID-19; Z86.73 Personal history of transient ischemic attack (TIA), and cerebral infarction without residual deficits; R53.81 Other malaise; D64.9 Anemia, unspecified; E88.09 Other disorders of plasma-protein metabolism, not elsewhere classified; B85.2 Pediculosis, unspecified; B88.8 Other specified infestations; S42.142D Displaced fracture of glenoid cavity of scapula, left shoulder, subsequent encounter for fracture with routine healing; Z79.84 Long term (current) use of oral hypoglycemic drugs
CPT/HCPCS: 36415; 71045; 76700; 80048; 80053; 81001; 82550; 82553; 82570; 82728; 82948; 83540; 83735; 83880; 84100; 84156; 84466; 84484; 85014; 85018; 85025; 86850; 86900; 86920; 93005; 93306; 94640; 94660; 97139; 99284; J0360; J0692; J1200; J1756; J1815; J1940; J2405; J7030; J7050; J7799; P9016; U0002

== ENCOUNTER 2020-12-21 21:26 | Emergency (ER) | payer MEDICARE ==
[~2020-12-21] VITALS: Ht 154.9 cm; Wt 91.2 kg
[~2020-12-21 21:26] MED LIST changes: +CEFEPIME 11 GM/50 ML IV; +COLACE100 MG PO; +FERROUS SULFAT325 MG PO; +FUROSEMIDE40 MG PO; +Insulin Glargine SQ; +Insulin Lispro SQ; +MELATONIN3 MG PO
[2020-12-21 22:05] LABS: BASOPHILS % 0.6 % (0.0-1.0); EOSINOPHILS # (AUTO) 0.5 (0.0-0.4); EOSINOPHILS % 7.2 % (0.0-6.0); HEMATOCRIT 24.3 % (34.2-44.1); LYMPHOCYTES # (AUTO) 1.4 (1.0-3.2); LYMPHOCYTES % 20.6 % (18.0-39.1); MEAN CORPUSCULAR HEMOGLOBIN 29.9 pg (28-32); MEAN CORPUSCULAR HGB CONC 32.9 g/dL (31-35); MEAN CORPUSCULAR VOLUME 90.7 fL (81-99); MONOCYTES # (AUTO) 0.7 (0.2-0.8); MONOCYTES % 9.5 % (4.4-11.3); NEUTROPHILS # (AUTO) 4.3 (2.1-6.9); NEUTROPHILS % 61.7 % (38.7-80.0); PLATELET COUNT 275 x10e3/uL (140-360); RED BLOOD COUNT 2.68 x10e6/uL (3.6-5.1); RED CELL DISTRIBUTION WIDTH 13.6 % (11.7-14.4)
[2020-12-21 22:24] LABS: CALCIUM 8.8 mg/dL (8.4-10.2); CREATININE, SERUM 2.58 mg/dL (0.57-1.11)
== END 2020-12-21 23:45 | disposition home or self-care (01) ==
LOC: ER 21:31
DX: R60.9 Edema, unspecified (principal); I12.9 Hypertensive chronic kidney disease with stage 1 through stage 4 chronic kidney disease, or unspecified chronic kidney disease; E11.22 Type 2 diabetes mellitus with diabetic chronic kidney disease; E11.65 Type 2 diabetes mellitus with hyperglycemia; N18.30 Chronic kidney disease, stage 3 unspecified; E78.5 Hyperlipidemia, unspecified; I73.9 Peripheral vascular disease, unspecified
CPT/HCPCS: 36415; 80048; 85025